=== PATIENT | male | born 1970 | race Caucasian/White ===

== ENCOUNTER → 2021-11-07 | Outpatient (CLI) | payer OTHER ==
[2021-11-07 16:37] LABS: HEMOGLOBIN 15.8 gm/dl (14.0-17.5); RED BLOOD COUNT 4.94 M/UL (4.20-5.50); WHITE BLOOD COUNT 6.7 K/UL (4.5-11.0)
[2021-11-07 17:36] LABS: BUN/CREATININE RATIO 21 (0-10)
[2021-11-09 07:10] LABS: HEPATITIS B SURF AB QUANT 91.3 mIU/mL (Immunity>9.9); HIV AB/P24 AG SCREEN Non Reactive (Non Reactive)
[2021-11-09 08:13] LABS: VITAMIN D, 25-HYDROXY 27.5 ng/mL (30.0-100.0)
[2021-11-09 19:08] LABS: QUANTIFERON MITOGEN VALUE >10.00 IU/mL (.); QUANTIFERON NIL VALUE 0.03 IU/mL (.); QUANTIFERON TB1 AG VALUE 0.05 IU/mL (.); QUANTIFERON TB2 AG VALUE 0.03 IU/mL (.); QUANTIFERON-TB GOLD PLUS Negative (Negative)
[2021-11-10 17:10] LABS: T PALLIDUM ANTIBODIES Non Reactive (Non Reactive)
== END ==
LOC: LAB 14:44
PROVIDERS: Physician Assistant
DX: F15.20 Other stimulant dependence, uncomplicated (principal); F11.20 Opioid dependence, uncomplicated; F33.1 Major depressive disorder, recurrent, moderate
CPT/HCPCS: 36415; 80053; 80061; 80074; 82248; 82607; 82728; 83036; 83540; 83735; 84436; 84443; 84481; 85025; 86317; 86704; 86780; 87389

== ENCOUNTER 2022-01-05 02:32 | Emergency (ER) | payer OTHER ==
[2022-01-05] MEDS ORDERED: CEPHALEXIN500 M1 PO (04:32)
== END 2022-01-05 04:48 | disposition home or self-care (01) ==
LOC: ER1 02:32
DX: L03.116 Cellulitis of left lower limb (principal); L03.115 Cellulitis of right lower limb; I87.2 Venous insufficiency (chronic) (peripheral); I10 Essential (primary) hypertension
CPT/HCPCS: 99283